=== PATIENT | male | born 1970 | race Caucasian/White ===

== ENCOUNTER 2017-12-21 18:43 | Inpatient (IN) | payer MEDICAID, OTHER ==
[~2017-12-21] VITALS: Ht 180.3 cm; Wt 80.7 kg
[2017-12-21] MEDS ORDERED: DIPH25CA48 PO (19:46)
[2017-12-21] MEDS ORDERED: RISP3 PO (19:46)
[2017-12-21] MEDS ORDERED: LITH600 PO (19:46)
[2017-12-21] MEDS ORDERED: DIVA-78 PO (19:46)
[2017-12-21] MEDS ORDERED: DIVA-76 PO (19:46)
[2017-12-21] MEDS ORDERED: RISP4 PO (19:46)
[2017-12-21 20:05] LABS: BASOPHILS % (AUTO) 0.4 % (0.0-2.0); EOSINOPHILS % (AUTO) 1.6 % (1.0-6.0); HEMATOCRIT 40.5 % (41-53); HEMOGLOBIN 14.1 g/dL (13.5-17.5); LYMPHOCYTES # (AUTO) 1.1 K/uL (1.0-4.8); LYMPHOCYTES % (AUTO) 12.5 % (22.0-44.0); MEAN CORPUSCULAR HEMOGLOBIN 30.2 pg (26.0-34.0); MEAN CORPUSCULAR HGB CONC 34.8 G/dL (31.0-37.0); MEAN CORPUSCULAR VOLUME 87 fL (80-100); MONOCYTES # (AUTO) 0.7 K/uL (0.1-1.0); MONOCYTES % (AUTO) 7.4 % (2.0-9.0); NEUTROPHILS % (AUTO) 78.1 % (40.0-70.0); PLATELET COUNT (AUTO) 205 K/uL (150-450); RED BLOOD CELL COUNT(AUTO) 4.67 MIL/uL (4.50-5.90); RED CELL DISTRIBUTION WIDTH 13.7 % (11.5-14.5)
[2017-12-21 20:14] LABS: AMPHET/METH SCREEN,URINE NEGATIVE (NEGATIVE); BARBITURATE SCREEN, URINE NEGATIVE (NEGATIVE); BENZODIAZEPINES SCREEN,URINE NEGATIVE (NEGATIVE); CANNABINOID SCREEN,URINE NEGATIVE (NEGATIVE); COCAINE SCREEN,URINE NEGATIVE (NEGATIVE); METHADONE SCREEN, URINE NEGATIVE (NEGATIVE); OPIATE SCREEN,URINE NEGATIVE (NEGATIVE); PHENCYCLIDINE SCREEN,URINE NEGATIVE (NEGATIVE)
[2017-12-21 20:14] LABS: ANION GAP 12 mmol/L (8-16); CALCIUM, TOTAL 8.8 mg/dL (8.8-10.5); CARBON DIOXIDE 23 mmol/L (22-29); CHLORIDE 104 mmol/L (98-107); CREATININE 0.94 mg/dL (0.60-1.30); GLOMERULAR FILTR. RATE CALC > 60 mL/min (>60); GLUCOSE,RANDOM 89 mg/dL (70-110); POTASSIUM 3.5 mmol/L (3.5-5.1); SODIUM SERUM 139 mmol/L (136-145); UREA NITROGEN, BLOOD 14 mg/dL (7-18)
[2017-12-21 20:18] LABS: LITHIUM < 0.20 mmol/L (0.60-1.20)
[2017-12-21 20:20] LABS: ALANINE AMINOTRANSFERASE 29 U/L (12-78); ALBUMIN 4.2 g/dL (3.4-5.0); ALKALINE PHOSPHATASE 55 U/L (46-116); ASPARTATE AMINOTRANSFERASE 16 U/L (15-37); BILIRUBIN,TOTAL 0.4 mg/dL (0.1-1.0); TOTAL PROTEIN, SERUM 8.1 g/dL (6.4-8.2)
[2017-12-21 20:22] LABS: VALPROIC ACID < 3 mcg/mL (50-100)
[2017-12-21] MEDS ORDERED: PERMETHRIN 5% 60 GM CREAM TP ONE (22:15)
[2017-12-21] MEDS ORDERED: LORazepam 2 MG TABLET PO PRN (23:00)
[2017-12-21] MEDS ORDERED: HALOPERIDOL 5 MG TABLET PO PRN (23:00)
[2017-12-22 01:07] VITALS: BP 137/85
[2017-12-22] MEDS ORDERED: PNEUMOCOCCAL VACCINE POLYVALENT 0.5 ML VIAL [PPSV23] SQ ONE (03:00)
[2017-12-22 06:27] LABS: HEMOGLOBIN A1C 5.1 % (4.5-6.2)
[2017-12-22 06:48] LABS: CHOL/HDL RATIO 4.2 (4.2-7.3); FREE T4 (FREE THYROXINE) 1.06 ng/dL (0.76-1.46); THYROID STIMULATING HORMONE 1.12 uIU/mL (0.36-3.74)
[2017-12-22 10:24] VITALS: BP 137/78
[2017-12-22 16:54] VITALS: BP 130/87
[2017-12-22] MEDS: RisperiDONE 2 MG TABLET PO SCH (17:45)
[2017-12-23 08:28] VITALS: BP 133/86
[2017-12-23] MEDS: RisperiDONE 2 MG TABLET PO SCH ×2 (09:44→16:55)
[2017-12-23 20:44] VITALS: BP 142/65
[2017-12-24 08:25] VITALS: BP 128/81
[2017-12-24] MEDS: RisperiDONE 2 MG TABLET PO SCH ×2 (09:45→18:00)
[2017-12-24 16:36] VITALS: BP 117/73
[2017-12-25 04:33] VITALS: BP 117/73
[2017-12-25 08:54] VITALS: BP 120/70
[2017-12-25] MEDS: RisperiDONE 2 MG TABLET PO SCH ×2 (10:27→17:31)
[2017-12-25 16:58] VITALS: BP 118/80
[2017-12-26] MEDS: RisperiDONE 2 MG TABLET PO SCH ×2 (09:19→16:54)
[2017-12-26 10:11] VITALS: BP 126/89
[2017-12-26 16:30] VITALS: BP 127/69
[2017-12-27 06:27] VITALS: BP 121/73
[2017-12-27 09:06] VITALS: BP 126/68
[2017-12-27] MEDS: RisperiDONE 2 MG TABLET PO SCH ×2 (09:45→16:29)
[2017-12-28] MEDS: RisperiDONE 2 MG TABLET PO SCH ×2 (08:38→17:21)
[2017-12-28 08:46] VITALS: BP 140/92
[2017-12-28 16:30] VITALS: BP 134/82
[2017-12-29 00:05] VITALS: BP 130/83
[2017-12-29] MEDS: ZOLPIDEM TARTRATE 10 MG TABLET PO PRN ×2 (02:39→20:11)
[2017-12-29 08:00] VITALS: BP 139/80
[2017-12-29] MEDS: RisperiDONE 2 MG TABLET PO SCH ×2 (08:24→16:01)
[2017-12-29 09:33] VITALS: BP 139/80
[2017-12-29 18:43] VITALS: BP 135/72
[2017-12-30 08:05] VITALS: BP 153/70
[2017-12-30] MEDS: RisperiDONE 2 MG TABLET PO SCH (09:31)
[2017-12-30 18:22] VITALS: BP 146/77
[2017-12-30] MEDS: RisperiDONE 3 MG TABLET PO SCH (20:41)
[2017-12-31] MEDS: RisperiDONE 3 MG TABLET PO SCH ×2 (08:08→21:21)
[2017-12-31 08:49] VITALS: BP 131/78
[2017-12-31 17:27] VITALS: BP 119/73
[2018-01-01 06:00] VITALS: BP 134/76
[2018-01-01] MEDS: RisperiDONE 3 MG TABLET PO SCH ×2 (08:12→20:41)
[2018-01-01 08:28] VITALS: BP 121/86
[2018-01-01 18:13] VITALS: BP 114/65
[2018-01-02] MEDS: RisperiDONE 3 MG TABLET PO SCH ×2 (09:11→21:34)
[2018-01-02 09:42] VITALS: BP 120/92
[2018-01-02 17:58] VITALS: BP 139/86
[2018-01-03] MEDS: RisperiDONE 3 MG TABLET PO SCH ×2 (08:29→20:39)
[2018-01-03 08:41] VITALS: BP 113/77
[2018-01-03 16:30] VITALS: BP 137/87
[2018-01-04] MEDS: RisperiDONE 3 MG TABLET PO SCH ×2 (09:15→20:18)
[2018-01-04 10:16] VITALS: BP 156/75
[2018-01-05 05:45] VITALS: BP 123/81
[2018-01-05] MEDS: RisperiDONE 3 MG TABLET PO SCH ×2 (09:06→20:44)
[2018-01-05 10:02] VITALS: BP 121/87
[2018-01-05 18:29] VITALS: BP 131/81
[2018-01-06] MEDS: RisperiDONE 3 MG TABLET PO SCH ×2 (08:28→20:13)
[2018-01-06 17:18] VITALS: BP 112/70
[2018-01-07 06:04] VITALS: BP 101/78
[2018-01-07 08:44] VITALS: BP 113/87
[2018-01-07] MEDS: RisperiDONE 3 MG TABLET PO SCH ×2 (10:50→21:12)
[2018-01-07 16:37] VITALS: BP 113/63
[2018-01-08 06:43] VITALS: BP 114/73
[2018-01-08] MEDS: RisperiDONE 3 MG TABLET PO SCH ×2 (09:40→20:55)
[2018-01-08 10:59] VITALS: BP 134/84
[2018-01-08 16:42] VITALS: BP 121/85
[2018-01-09] MEDS: RisperiDONE 3 MG TABLET PO SCH ×2 (09:53→20:48)
[2018-01-09 12:51] VITALS: BP 130/92
[2018-01-09 17:03] VITALS: BP 114/76
[2018-01-10 08:23] VITALS: BP 122/69
[2018-01-10] MEDS: RisperiDONE 3 MG TABLET PO SCH ×2 (10:32→21:21)
[2018-01-10 18:22] VITALS: BP 130/74
[2018-01-11 08:05] VITALS: BP 124/78
[2018-01-11] MEDS: RisperiDONE 3 MG TABLET PO SCH ×2 (09:40→20:19)
[2018-01-11 16:59] VITALS: BP 101/69
[2018-01-12] MEDS: RisperiDONE 3 MG TABLET PO SCH ×2 (09:17→21:12)
[2018-01-12 10:10] VITALS: BP 114/74
[2018-01-12 17:00] VITALS: BP 156/88
[2018-01-13] MEDS: RisperiDONE 3 MG TABLET PO SCH (09:32)
== END 2018-01-13 13:00 | disposition home or self-care (01) | DRG 750 ==
LOC: EMS 18:44 → 3EI 23:00
PROVIDERS: ADMIT Psychiatry & Neurology Psychiatry; ATTEND Psychiatry & Neurology Psychiatry
DX: F20.0 Paranoid schizophrenia (principal); Z59.0 Homelessness; K59.00 Constipation, unspecified; Z87.891 Personal history of nicotine dependence; Z91.14 Patient's other noncompliance with medication regimen; Z79.899 Other long term (current) drug therapy; Z23 Encounter for immunization
CPT/HCPCS: 83036; 84439; 84443; 87081; 90686; G0480